=== PATIENT | female | born 1985 | race Caucasian/White ===

== ENCOUNTER 2020-10-28 10:40 | Emergency (ER) | payer OTHER, SELFPAY ==
[2020-10-28 11:53] VITALS: BP 109/71; PULSE 90; RESP 15; TEMP 36.7; O2SAT 98
[2020-10-28] MEDS: IBUPROFEN 600 MG TABLET PO (12:58)
[2020-10-28] MEDS: TETANUS,DIPHTHERIA,AC PERTUSSIS ADULT (0.5 ML) BOOSTRIX IM (12:58)
--- NOTE | 2020-10-28 14:12 | ED.GENADULT ---
HPI - General Adult General Chief complaint: Animal Bite Stated complaint: dog bite Time Seen by Provider: 10/28/20 11:19 Source: patient and RN notes reviewed Mode of arrival: ambulatory Limitations: no limitations History of Present Illness HPI narrative: Patient is a 35-year-old female who presents with dog bites to the left arm patient was holding a dog down while they were sedating the dog when she was bit on the left arm patient sustained 3 lacerations of the left arm patient notes moderate aching pain worse with touch denies other injuries or complaints notes that her tetanus is not up-to-date Related Data Allergies Allergy/AdvReac Type Severity Reaction Status Date / Time Penicillins Allergy Intermediate rash Verified 11/27/15 10:29 Sulfa (Sulfonamide Allergy Intermediate rash Verified 11/27/15 10:29 Antibiotics) Review of Systems Review of Systems: All systems reviewed & are unremarkable except as noted in HPI and below PMFSH Social History Social History (Updated 10/28/20 @ 14:12 by Flavio Gallego PA-C) Smoking status: Never smoker Gender identity (if verbalized by the patient): Female Exam Narrative: Exam Narrative: GENERAL: Well-appearing, well-nourished, and in no acute distress. HEAD: Normocephalic, atraumatic. EYES: PERRLA and EOMI. ENT: Nares clear, no rhinorrhea or epistaxis. Mucous membranes moist. EXTREMITIES: Normal range of motion. No edema. SKIN: Warm, dry, no rash. Gaping 2 cm laceration of the left forearm. 1.5 cm gaping laceration left forearm. Half centimeter gaping laceration left forearm NEURO: No focal deficits. Alert and oriented x3. Neurovascularly intact. Capillary refill less than 2 seconds PSYCH: Normal mood and affect. Course Course Emergency Course: Patient in the room no distress lacerations were closed she will follow with primary care tetanus updated Vital Signs Vital signs: Vital Signs Temperature 98.0 F 10/28/20 11:53 Pulse Rate 90 10/28/20 11:53 Respiratory Rate 15 10/28/20 11:53 Blood Pressure 109/71 10/28/20 11:53 Pulse Oximetry 98 10/28/20 11:53 Temperature 98.0 F 10/28/20 11:53 Pulse Rate 90 10/28/20 11:53 Respiratory Rate 15 10/28/20 11:53 Blood Pressure 109/71 10/28/20 11:53 Pulse Oximetry 98 10/28/20 11:53 Procedures Laceration Laceration 1: Date: 10/28/20 Time: 14:15 Site: upper extremity Side (If applicable): left Size (cm): 3.5 Description: irregular Depth: simple, single layer Local Anesthetic: lidocaine 1% Pre-repair: wound explored, irrigated and irrigated extensively ====== Skin Level ====== Skin layer closed with: nylon Size (cm): 5-0 Number of sutures: 3 ====== Subcutaneous Layer ====== ====== Muscle Layer ====== ====== Tendon Layer ====== Laceration 2: Date: 10/28/20 Time: 14:15 Site: upper extremity Side (If applicable): left Size (cm): 2 Description: irregular Depth: simple, single layer Local Anesthetic: lidocaine 1% Pre-repair: wound explored, irrigated and irrigated extensively ====== Skin Level ====== Skin layer closed with: nylon Size (cm): 5-0 Number of sutures: 1 ====== Subcutaneous Layer ====== ====== Muscle Layer ====== ====== Tendon Layer ====== Medical Decision Making MDM Narrative Medical decision making narrative: Patients injury or pain is consistent with musculoskeletal etiology. No signs of neurological or vascular compromise on exam. Compartments and tisues are soft without signs of compartment syndrome. Pain is felt appropriate for further evaluation on an outpatient basis. Lacerations closed Vital Signs Vital Signs: Vital Signs Temperature 98.0 F 10/28/20 11:53 Pulse Rate 90 10/28/20 11:53 Respiratory Rate 15 10/28/20 11:53 Blood Pressure 109/71 10/28
[2020-10-28 14:33] VITALS: BP 118/75; PULSE 72; RESP 16; O2SAT 97
== END 2020-10-28 14:34 | disposition home or self-care (01) ==
PROVIDERS: Emergency Provider Emergency Medicine
DX: S51.852A Open bite of left forearm, initial encounter (principal); W54.0XXA Bitten by dog, initial encounter; Z23 Encounter for immunization
CPT/HCPCS: 12002; 90471; 90715; 99283; A9270